=== PATIENT | female | born 1940 | race African-American/Black ===

== ENCOUNTER 2018-04-24 11:04 | Day surgery (SDC) | payer MEDICARE ==
[~2018-04-24 11:04] MED LIST: IOPIDINE ONE; IOPIDINE OS ONE; MYDRIACYL ONE; MYDRIACYL OS ONE; NEOFRIN ONE; NEOFRIN OS ONE
[2018-04-24] MEDS ORDERED: MYDRIACYL OS ONE (11:47)
[2018-04-24] MEDS ORDERED: NEOFRIN OS ONE (11:47)
[2018-04-24] MEDS ORDERED: IOPIDINE OS ONE (11:47)
[2018-04-24 12:27] VITALS: BP 174/99
== END 2018-04-24 11:05 | disposition home or self-care (01) ==
LOC: OR 11:04
PROVIDERS: ATTEND Specialist
DX: H26.492 Other secondary cataract, left eye (principal); I10 Essential (primary) hypertension; M19.90 Unspecified osteoarthritis, unspecified site; Z98.890 Other specified postprocedural states; Z79.84 Long term (current) use of oral hypoglycemic drugs; Z79.899 Other long term (current) drug therapy; Z98.41 Cataract extraction status, right eye; Z98.42 Cataract extraction status, left eye
CPT/HCPCS: 82962